=== PATIENT | female | born 1995 | race Caucasian/White ===

== ENCOUNTER → 2017-04-20 | Outpatient (REF) | payer BC ==
[2017-04-20 19:43] LABS: PLATELET COUNT, AUTOMATED 235 K/uL (150-450)
== END ==
PROVIDERS: ATTEND Nurse Practitioner Family
DX: R10.9 Unspecified abdominal pain (principal)
CPT/HCPCS: 82040; 82247; 82310; 82374; 82435; 82565; 82947; 84075; 84132; 84155; 84295; 84450; 84460; 84520; 85025

== ENCOUNTER → 2017-04-21 | Outpatient (CLI) | payer BC ==
[~2017-04-21] MED LIST: IOPAMIDOL 76% 75 ML INFUS BTL 75 ML ONE; NS 0.9% 20 ML SDV 40 ML ONE
--- NOTE | 2017-04-21 14:17 | RADIOLOGY IMAGING REPORT ---
FACILITY: [facility] PATIENT NAME: Pari Carrizales : 1995 MR: [id number] V: [id number] EXAM DATE: ORDERING PHYSICIAN: DORIE RICHARD TECHNOLOGIST: Location: [facility] - [place], [place] Patient: Pari Carrizales : 1995 Visit/Account:[id number] Date of Sevice: 04/21/2017 ADDENDUM #1 On further review, there are several tiny developing stones in the medulla both kidneys seen only on the 1 mm axial reconstruction. These are under a millimeter in diameter but is consistent with develo ping stones in this patient. The most notable is upper pole right kidney image 104 of series 5. Report Dictated By: Alex Whalen MD at 04/21/2017 2:27 PM Report E-Signed By: Alex Whalen MD at 04/21/2017 2:29 PM ORIGINAL REPORT ABDOMEN/PELVIS W/WO CONTRAST Provided history: Right lower quadrant pain. Assess for appendicitis or stone disease. Additional pertinent history: none TECHNIQUE: Spiral scan was obtained from the lower chest through the symphysis with intravenous cont rast Contrast dose: 75 mL Isovue 370 intravenously. Source images were reformatted in the coronal and sagittal planes. Additional series performed today: none One of the following dose optimization techniques was utilized in the performance of this exam: Autom ated exposure control; adjustment of the mA and/or kV according to the patient's size; or use of an i terative reconstruction technique. Specific details can be referenced in the facility's radiology CT exam operational policy. COMPARISON STUDIES: none FINDINGS: Lower chest: Negative Liver/biliary: Negative Pancreas: Negative Spleen: Negative Adrenal glands: Negative Kidneys / ureters / bladder / genitourinary / retroperitoneum: There is minor medullary hyperdensity both kidneys without definable formed stones. No hydronephrosis. No stones in the course of the wu l caliber ureters, bladder wall or bladder lumen. No suspect cortical lesions. No signs of pyonephritis. 17 mm cyst left ovary. Uterus and right ovary negative. No free fluid. Bowel / peritoneum / mesenteries: Negative. Normal partially gas-filled appendix demonstrated without surrounding inflammatory disease. Vessels: negative Lymph nodes: negative Body wall: negative Bones: negative IMPRESSION: 1. Negative assessment of the kidneys, ureters and bladder. No stone disease or hydronephrosis and no signs of pyonephritis. 2. Normal appendix. 3. Small benign cyst or dominant follicle left ovary. I am having the [facility]'s call the absence of acute findings to DORIE RICHARD for me 04/21/2017 2:07 PM. Report Dictated By: Alex Whalen MD at 04/21/2017 2:07 PM Report E-Signed By: Alex Whalen MD at 04/21/2017 2:13 PM WSN:[id number]
== END ==
LOC: CT 13:13
PROVIDERS: ATTEND Nurse Practitioner Family
DX: N20.0 Calculus of kidney (principal); N83.202 Unspecified ovarian cyst, left side
CPT/HCPCS: 74178; J7050; Q9967